=== PATIENT | male | born 2000 | race Caucasian/White ===

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

== ENCOUNTER 2018-07-08 13:05 | Outpatient (CLI) | payer OTHER | END 2018-07-08 17:00 | disposition home or self-care (01) | LOC: MRI 13:05 | DX: M54.5 Low back pain (principal) | CPT/HCPCS: 72148 ==

== ENCOUNTER → 2019-03-03 | Outpatient (CLI) | payer OTHER | END | disposition home or self-care (01) | LOC: LAB 09:27 | DX: K52.3 Indeterminate colitis (principal) ==

== ENCOUNTER → 2019-03-03 | Outpatient (CLI) | payer OTHER | END | disposition home or self-care (01) | LOC: TOM 08:27 | DX: R10.84 Generalized abdominal pain (principal) ==

== ENCOUNTER 2019-03-09 07:00 | Day surgery (SDC) | payer OTHER | END 2019-03-09 11:10 | disposition home or self-care (01) | LOC: AMB-ENDOS 07:00 → ADM 15:00 → AMB-ENDOS 15:00 | DX: D12.8 Benign neoplasm of rectum (principal) ==

== ENCOUNTER → 2019-10-20 | Outpatient (CLI) | payer OTHER | END | disposition home or self-care (01) | LOC: TOM 07:09 | PROVIDERS: ATTEND Radiology Diagnostic Radiology | DX: M25.521 Pain in right elbow (principal) | CPT/HCPCS: 73218 ==

== ENCOUNTER → 2020-01-11 | Outpatient (CLI) | payer OTHER | END | disposition home or self-care (01) | LOC: RAD 08:22 | PROVIDERS: ATTEND Radiology Diagnostic Radiology | DX: M25.532 Pain in left wrist (principal) ==

== ENCOUNTER → 2020-02-16 | Outpatient (CLI) | payer OTHER | END | disposition home or self-care (01) | LOC: RAD 11:00 | PROVIDERS: ATTEND Radiology Diagnostic Radiology | DX: M25.532 Pain in left wrist (principal) ==

== ENCOUNTER → 2020-08-22 | Outpatient (CLI) | payer OTHER | END | disposition home or self-care (01) | LOC: MRI 08:46 | PROVIDERS: ATTEND Radiology Diagnostic Radiology | DX: M23.321 Other meniscus derangements, posterior horn of medial meniscus, right knee (principal) | CPT/HCPCS: 73721 ==

== ENCOUNTER 2023-12-11 10:07 | Outpatient (CLI) | payer OTHER | END 2023-12-11 14:42 | disposition home or self-care (01) | LOC: SONOGRAMA 10:07 | PROVIDERS: ATTEND Radiology Diagnostic Radiology | DX: M25.511 Pain in right shoulder (principal) ==